=== PATIENT | female | born 1955 | race African-American/Black ===

== ENCOUNTER 2016-12-30 06:48 | Day surgery (SDC) | payer OTHER ==
[~2016-12-30] VITALS: Ht 162.6 cm; Wt 125.0 kg
[~2016-12-30 06:48] MED LIST: AMLODIPINE BESY10 MG PO; ATORVASTATIN CA40 MG PO; ENALAPRIL MALEA20 MG PO; GLUCOPHAGE1000 MG PO
[2016-12-30 07:31] LABS: POINT-OF-CARE METER ID UU14174212
[2016-12-30 07:35] VITALS: BP 142/65
[2016-12-30] MEDS ORDERED: IBUPROFEN800 MG PO (09:25)
[2016-12-30 10:11] LABS: POINT-OF-CARE METER ID UU13113675
[2016-12-30 10:40] VITALS: BP 147/67
[2016-12-30 11:39] VITALS: BP 137/66
== END 2016-12-30 11:52 | disposition home or self-care (01) ==
LOC: SDC 06:48
PROVIDERS: Obstetrics & Gynecology
DX: N85.00 Endometrial hyperplasia, unspecified (principal); N93.9 Abnormal uterine and vaginal bleeding, unspecified; N84.0 Polyp of corpus uteri; N84.1 Polyp of cervix uteri; I10 Essential (primary) hypertension; F41.9 Anxiety disorder, unspecified; J45.909 Unspecified asthma, uncomplicated; E11.9 Type 2 diabetes mellitus without complications; E66.01 Morbid (severe) obesity due to excess calories; Z68.42 Body mass index [BMI] 45.0-49.9, adult; Z79.84 Long term (current) use of oral hypoglycemic drugs
CPT/HCPCS: 82948; 88305; J0131; J0330; J2250; J2405; J3010

== ENCOUNTER 2017-02-09 05:34 | Day surgery (SDC) | payer BC, OTHER ==
[~2017-02-09] VITALS: Ht 162.6 cm; Wt 125.0 kg
[~2017-02-09 05:34] MED LIST changes: +IBUPROFEN800 MG PO; +TYLENOL EXTRA500 MG PO; +VASOTEC20 MG PO; +ZOLOFT50 MG PO
[2017-02-09 06:25] VITALS: BP 140/62
[2017-02-09 06:51] LABS: POINT-OF-CARE METER ID UU14174212; POINT-OF-CARE USER ID AHSRSCSLC11
[2017-02-09] MEDS ORDERED: TYLENOL WITH C1 EACH PO (10:22)
[2017-02-09 10:50] LABS: POINT-OF-CARE METER ID UU13113675
[2017-02-09 11:40] VITALS: BP 151/69
[2017-02-09 12:45] VITALS: BP 135/69
[2017-02-09 14:47] VITALS: BP 156/77
== END 2017-02-09 15:02 | disposition home or self-care (01) ==
LOC: SDC 05:34
PROVIDERS: Obstetrics & Gynecology
DX: N85.01 Benign endometrial hyperplasia (principal); N80.0 Endometriosis of uterus; N73.6 Female pelvic peritoneal adhesions (postinfective); K66.0 Peritoneal adhesions (postprocedural) (postinfection); E11.9 Type 2 diabetes mellitus without complications; E78.00 Pure hypercholesterolemia, unspecified; I10 Essential (primary) hypertension; F41.8 Other specified anxiety disorders; J45.909 Unspecified asthma, uncomplicated; E66.9 Obesity, unspecified; Z68.41 Body mass index [BMI] 40.0-44.9, adult; Z79.84 Long term (current) use of oral hypoglycemic drugs; Z80.0 Family history of malignant neoplasm of digestive organs; Z82.49 Family history of ischemic heart disease and other diseases of the circulatory system; Z83.3 Family history of diabetes mellitus; Z82.3 Family history of stroke; Z88.0 Allergy status to penicillin; Z88.5 Allergy status to narcotic agent; Z88.6 Allergy status to analgesic agent
CPT/HCPCS: 82948; 88307; J0330; J1100; J1170; J1580; J1885; J2001; J2405; J2710; J2795; J3010; J3475; J7050; J7120; Q0175